=== PATIENT | female | born 1960 ===

== ENCOUNTER 2017-11-10 16:49 | Inpatient (IN) | payer OTHER ==
[~2017-11-10] VITALS: Ht 149.9 cm; Wt 45.8 kg
[~2017-11-10 16:49] MED LIST: BONIVA150 MG PO; COZAAR25 MG PO; PRAVASTATIN SOD40 MG PO; PREVACID15 MG PO; PROBIOTIC1 EAC3 PO
[2017-11-14] MEDS ORDERED: CIPRO500 MG PO (10:27)
[2017-11-14] MEDS ORDERED: INTESTINEX680 M1 PO (10:27)
[2017-11-14] MEDS ORDERED: FLAGYL500MG PO (10:27)
[2017-11-14] MEDS ORDERED: PROTONIX40 MG PO (10:28)
[2017-11-14] MEDS ORDERED: ZANTAC150 MG PO (10:28)
[2017-11-14] MEDS ORDERED: ZOFRAN ODT4 MG PO (10:29)
== END 2017-11-14 12:40 | disposition home or self-care (01) | DRG 387 ==
LOC: ER 16:49 → SURH 11-11 10:40
DX: K51.518 Left sided colitis with other complication (principal); I11.9 Hypertensive heart disease without heart failure

== ENCOUNTER 2018-03-21 06:43 | Day surgery (SDC) | payer OTHER ==
[~2018-03-21 06:43] MED LIST changes: +CIPRO500 MG PO; +FLAGYL500MG PO; +INTESTINEX680 M1 PO; +PROTONIX40 MG PO; +ZANTAC150 MG PO; +ZOFRAN ODT4 MG PO
== END 2018-03-21 13:45 | disposition home or self-care (01) ==
LOC: AMB-ENDOS 06:43
DX: K52.89 Other specified noninfective gastroenteritis and colitis (principal); K64.8 Other hemorrhoids